=== PATIENT | female | born 1945 | race Caucasian/White ===

== ENCOUNTER 2024-03-20 11:04 | Outpatient (RCR) | payer MEDICARE, BC | END 2024-04-12 | disposition still patient (30) | LOC: CARDREHAB → PT 11:04 → EDSTATUS 11:07 | DX: Z48.812 Encounter for surgical aftercare following surgery on the circulatory system (principal); Z95.5 Presence of coronary angioplasty implant and graft ==

== ENCOUNTER 2024-03-27 08:00 | Outpatient (RCR) | payer MEDICARE, BC | END 2024-04-12 | LOC: PT | DX: R26.81 Unsteadiness on feet (principal); R29.898 Other symptoms and signs involving the musculoskeletal system; M79.2 Neuralgia and neuritis, unspecified ==

== ENCOUNTER 2024-04-13 08:00 | Outpatient (RCR) | payer MEDICARE, BC ==
[~2024-04-13] VITALS: Ht 162.6 cm; Wt 86.2 kg
== END 2024-05-13 | disposition home or self-care (01) ==
LOC: CARDREHAB
DX: Z48.812 Encounter for surgical aftercare following surgery on the circulatory system (principal); Z95.5 Presence of coronary angioplasty implant and graft

== ENCOUNTER 2024-05-17 09:30 | Outpatient (RCR) | payer MEDICARE, BC | END 2024-06-12 | disposition home or self-care (01) | LOC: PT | DX: M79.2 Neuralgia and neuritis, unspecified (principal) ==

== ENCOUNTER 2024-05-17 09:30 | Outpatient (RCR) | payer MEDICARE, BC | END 2024-06-12 | disposition home or self-care (01) | LOC: CARDREHAB | DX: Z48.812 Encounter for surgical aftercare following surgery on the circulatory system (principal); Z95.5 Presence of coronary angioplasty implant and graft ==